=== PATIENT | male | born 1950 | race Caucasian/White ===

== ENCOUNTER → 2018-07-25 | Outpatient (CLI) | payer MEDICARE, OTHER ==
[~2018-07-25] MED LIST: CEFU500T5 PO; HYDR-3583 PO; TRM50T PO
--- NOTE | 2018-07-25 18:13 | Diagnostic Imaging Report ---
INDICATION: Cough. TIME OF EXAM: 3:08 p.m. COMPARISON: No prior studies are available for comparison. The heart size is normal. The pulmonary vascularity is unremarkable. The lungs are clear. No infiltrate, effusion or pneumothorax is detected. IMPRESSION: No acute cardiopulmonary process is detected. Dictated by: Dictated on workstation # [id number]
== END ==
LOC: RAD 14:30
PROVIDERS: ATTEND Internal Medicine
DX: R05 Cough (principal)
CPT/HCPCS: 71046

== ENCOUNTER 2020-05-13 10:53 | Emergency (ER) | payer MEDICARE, OTHER ==
[~2020-05-13] VITALS: Ht 177 cm; Wt 79.0 kg
[2020-05-13 11:05] VITALS: BP 130/82
--- NOTE | 2020-05-13 11:12 | ED Upper Extremity ---
General Chief Complaint: Laceration Stated Complaint: R FINGER PAIN Source: patient Exam Limitations: no limitations History of Present Illness Date Seen by Provider: May 13, 2020 Time Seen by Provider: 11:11 Initial Comments To ER with reports of a table saw injury to the dorsal aspect distal phalanx right pointer fingers prior to arrival. Tetanus is up-to-date. Onset: just prior to arrival Severity: moderate Pain/Injury Location: right 2nd finger Modifying Factors: Worse With Movement Allergies and Home Medications Allergies Coded Allergies: No Known Drug Allergies (Unverified , 08/19/11) Patient Home Medication List Home Medication List Reviewed: Yes Review of Systems Constitutional: see HPI EENTM: see HPI Respiratory: no symptoms reported Cardiovascular: no symptoms reported Genitourinary: no symptoms reported Musculoskeletal: no symptoms reported Skin: no symptoms reported Psychiatric/Neurological: No Symptoms Reported Past Skzvbjl-Fifhkk-Qxgluw Hx Patient Social History Recent Foreign Travel: No Contact w/Someone Who Travel: No Immunizations Up To Date Tetanus Booster (TDap): Unknown Past Medical History Reproductive Disorders: No Family Medical History No Pertinent Family Hx Physical Exam Vital Signs Vital Signs - First Documented 05/13/20 11:05 Temp 37.1 Pulse 91 Resp 16 B/P (MAP) 130/82 (98) Pulse Ox 97 O2 Delivery Room Air Capillary Refill : Height, Weight, BMI Height: '" Weight: lbs. oz. kg; BMI Method:Stated General Appearance: WD/WN, no apparent distress HEENT: PERRL/EOMI, normal ENT inspection Neck: non-tender, full range of motion Respiratory: no respiratory distress, no accessory muscle use Gastrointestinal: normal bowel sounds, non tender Shoulder: normal inspection, non-tender Wrist: Yes normal inspection, Yes non-tender Hand: Right, laceration (Avulsion of the radial side of the nail plate of the pointer finger on the right.) Neurologic/Psychiatric: alert, normal mood/affect, oriented x 3 Skin: normal color, warm/dry Procedures/Interventions Additional Procedures: Digital Block Progress/Results/Core Measures Results/Orders My Orders Orders - JULIANA LÓPEZ APRN Dipht,Pertiesha(Acell),Tet Adult (Boostrix (05/13/20 11:15) Hand, Right, 3 Views (05/13/20 11:10) Medications Given in ED Current Medications Medications Dose Ordered Sig/Jasper Route Start Time Stop Time Status Last Admin Dose Admin Diphtheria/ Tetanus/Acell Pertussis 0.5 ml ONCE ONCE IM 05/13/20 11:15 05/13/20 11:16 DC 05/13/20 11:46 0.5 ML Vital Signs/I&O 05/13/20 11:05 Temp 37.1 Pulse 91 Resp 16 B/P (MAP) 130/82 (98) Pulse Ox 97 O2 Delivery Room Air Departure Communication (Admissions) 1148-digital block was done. The loose bony fragment seen on x-ray was easily grasped with a pair of pickups and removed with scissors. This was then copiously irrigated with about 200 cc of Betadine/saline solution. Xeroform gauze was then wrapped around this then to gauze. Tetanus shot was given. I will put him on Keflex. He denies going any thing for pain. Impression Primary Impression: Nail avulsion Additional Impression: Open fracture finger Disposition: HOME, SELF-CARE Condition: Stable Departure-Patient Inst. Decision time for Depature: 11:15 Referrals: TATI MENJIVAR MD (PCP/Family) Primary Care Physician Patient Instructions: Wound Care Add. Discharge Instructions: 1. Keep this dressing in place clean and dry in the meantime. Return to ER sometime Monday after 11 PM for bandage change so I can look at this again. Take the antibiotics. Tylenol and ibuprofen for pain control. Return to ER for any worsening. All discharge instructions reviewed with patient and/or family. Voiced understa nding. Scripts Cephalexin (Keflex) 500 Mg Capsule 500 MG PO QID, #20 CAP Prov: JULIANA LÓPEZ APRN 05/13/20 JULIANA LÓPEZ APRN May 13, 2020 11:12
[2020-05-13] MEDS ORDERED: TETANUS,DIPTH,PERTUSS P/F (BOOSTRIX) 0.5 ML VIAL IM ONE (11:15)
--- NOTE | 2020-05-13 11:46 | Diagnostic Imaging Report ---
INDICATION: Injury to the 2nd digit with a table saw. TIME OF EXAM: 11:38 AM. TECHNIQUE: Three views of the right hand were obtained. FINDINGS: There is comminuted fracture at the tuft of the index finger, radial side. No radiopaque soft tissue foreign body is seen. The remaining phalanges are intact. The metacarpals are intact. IMPRESSION: Soft tissue injury and tuft fracture of the index finger, as described. Dictated by: Dictated on workstation # [id number]
[2020-05-13] MEDS ORDERED: CEPH-507 PO (11:50)
== END 2020-05-13 12:11 | disposition home or self-care (01) ==
LOC: EDUNIT# 10:53 → ER 10:55
DX: S62.630B Displaced fracture of distal phalanx of right index finger, initial encounter for open fracture (principal); Z23 Encounter for immunization; W31.2XXA Contact with powered woodworking and forming machines, initial encounter
CPT/HCPCS: 64450; 73130; 90715

== ENCOUNTER 2020-05-15 11:08 | Emergency (ER) | payer MEDICARE, OTHER ==
[~2020-05-15] VITALS: Ht 177 cm; Wt 79.0 kg
[~2020-05-15 11:08] MED LIST changes: +CEPH-507 PO
--- NOTE | 2020-05-15 11:12 | ED Suture Removal/Wound Check ---
Suture/Wound Re-check General Appearance: WD/WN, no apparent distress Neuro/Tendon: normal sensation Skin Exam: normal color, warm/dry Physical Exam Vital Signs Capillary Refill : General Appearance: WD/WN, no apparent distress Respiratory: no respiratory distress, no accessory muscle use Neurologic/Psychiatric: alert, normal mood/affect, oriented x 3 Skin: normal color, warm/dry Skin Problem Location: upper extremities Skin Problem Character: other (pointer finger dressing removed and applied a simple bandaid. ) Departure Impression Primary Impression: Visit for wound check Disposition: HOME, SELF-CARE Condition: Stable Departure-Patient Inst. Decision time for Depature: 11:11 Referrals: TATI MENJIVAR MD (PCP/Family) Primary Care Physician Patient Instructions: Wound Care (DC) Add. Discharge Instructions: Keep this dressing in place for two more days. after that, place a simple bandaid over it and wear the splint. Follow up with your regular doctor next week. All discharge instructions reviewed with patient and/or family. Voiced understanding. JULIANA LÓPEZ [employer] SERVICE CONSULTANT May 15, 2020 11:12
[2020-05-15 11:14] VITALS: BP 125/81
== END 2020-05-15 11:28 | disposition home or self-care (01) ==
LOC: EDUNIT# 11:08 → ER 11:09
DX: Z48.00 Encounter for change or removal of nonsurgical wound dressing (principal)
CPT/HCPCS: 29130